=== PATIENT | female | born 1995 | race Hispanic/Latino ===

== ENCOUNTER 2018-08-16 17:39 | Emergency (ER) | payer SELFPAY ==
[2018-08-16] MEDS ORDERED: Ondansetron PF 4 MG/2 ML Vial ONE (18:04)
[2018-08-16] MEDS ORDERED: Famotidine/PF 20 mg/2ml Vial ONE (18:04)
[2018-08-16] MEDS ORDERED: Dicyclomine 20 MG TAB ONE (18:04)
[2018-08-16 18:28] LABS: BHCG - Serum Negative (NEGATIVE); Pregs Control Background? CLEAR/WHITE (CLR/WHITE); Pregs Control Bar Appear? YES (CONTROL BAR)
[2018-08-16 18:32] LABS: Band 4 % (5-11); Hemoglobin 13.7 g/dL (12.0-16.0); Lymphocytes 19 % (21-51); MDiff Complete? YES; Mean Corpuscular Hemoglobin 28.9 pg (27.0-31.0); Mean Corpuscular Volume 84.9 fL (78.0-98.0); Mean Platelet Volume 11.6 fL (7.4-10.4); Monocytes 5 % (0-10); Neutrophil 69 % (42-75); PLT Morphology Comment Appears Adequate; Platelet Count 185 thou/uL (130-400); RBC Distribution Width 10.9 % (11.5-14.5); Reactive Lymphocytes 3 % (0-10); Red Blood Cell (RBC) Count 4.75 mill/uL (4.20-5.40); White Blood Cell (WBC) Count 8.2 thou/uL (4.8-10.8)
[2018-08-16 18:37] LABS: ALT (SGPT) 25 U/L (8-55); AST (SGOT) 19 U/L (5-34); Albumin 4.6 g/dL (3.5-5.0); Alkaline Phosphatase 84 U/L (40-150); Anion Gap 14 mmol/L (10-20); BUN (Urea Nitrogen) 6 mg/dL (7.0-18.7); Bilirubin, Total 0.6 mg/dL (0.2-1.2); Calc. Creatinine Clearance 0 mL/min (70-130); Calcium 9.8 mg/dL (7.8-10.44); Carbon Dioxide 25 mmol/L (22-29); Chloride 106 mmol/L (98-107); Estimated GFR-MDRD Greater than 90; Globulin 3.2 g/dL (2.4-3.5); Glucose 97 mg/dL (70-105); Potassium 3.5 mmol/L (3.5-5.1); Protein, Total 7.8 g/dL (6.0-8.3); Sodium 141 mmol/L (136-145)
== END 2018-08-16 18:54 | disposition home or self-care (01) ==
LOC: SCSER 17:39
DX: R11.2 Nausea with vomiting, unspecified (principal); R19.7 Diarrhea, unspecified; F17.210 Nicotine dependence, cigarettes, uncomplicated
CPT/HCPCS: 80053; 84703; 85025; 96374; 96375; J2405; S0028

== ENCOUNTER 2019-01-09 21:26 | Emergency (ER) | payer SELFPAY ==
[2019-01-10] MEDS ORDERED: Lidocaine 1% w/Epinephrine 1:100K 20 ML VIAL ONE (00:18)
== END 2019-01-10 00:56 | disposition home or self-care (01) ==
LOC: ERS 21:26
DX: S71.112A Laceration without foreign body, left thigh, initial encounter (principal); W20.8XXA Other cause of strike by thrown, projected or falling object, initial encounter
CPT/HCPCS: 12032; J2001

== ENCOUNTER 2019-01-31 17:56 | Emergency (ER) | payer SELFPAY ==
[2019-01-31] MEDS ORDERED: Ondansetron PF 4 MG/2 ML Vial ONE (18:34)
[2019-01-31] MEDS ORDERED: Haloperidol Lactate 5 MG/ML VIAL ONE (18:34)
[2019-01-31] MEDS ORDERED: Lorazepam 2 MG/ML VIAL ONE (18:34)
[2019-01-31 18:43] LABS: #Lymphocytes 2.8 thou/uL (1.20-3.40); #Monocytes 0.8 thou/uL (0.11-0.59); %Basophils 0.2 % (0.0-1.0); %Eosinophils 0.2 % (0.0-10.0); %Lymphocytes 19.2 % (21.0-51.0); %Monocytes 5.1 % (0.0-10.0); %Neutrophils 75.3 % (42.0-75.0); Hemoglobin 16.1 g/dL (12.0-16.0); Mean Corpuscular HGB CONC 34.2 g/dL (32.0-36.0); Mean Corpuscular Hemoglobin 31.8 pg (27.0-31.0); Mean Platelet Volume 9.6 fL (7.4-10.4); Platelet Count 249 thou/uL (130-400); RBC Distribution Width 11.7 % (11.5-14.5); Red Blood Cell (RBC) Count 5.07 mill/uL (4.20-5.40); White Blood Cell (WBC) Count 14.7 thou/uL (4.8-10.8)
[2019-01-31 19:06] LABS: ALT (SGPT) 12 U/L (8-55); AST (SGOT) 16 U/L (5-34); Albumin 5.1 g/dL (3.5-5.0); Alkaline Phosphatase 97 U/L (40-150); Anion Gap 21 mmol/L (10-20); BUN (Urea Nitrogen) 4 mg/dL (7.0-18.7); Bilirubin, Total 0.7 mg/dL (0.2-1.2); Calc. Creatinine Clearance 0 mL/min (70-130); Calcium 10.8 mg/dL (7.8-10.44); Carbon Dioxide 15 mmol/L (22-29); Chloride 104 mmol/L (98-107); Estimated GFR-MDRD Greater than 90; Globulin 3.7 g/dL (2.4-3.5); Glucose 110 mg/dL (70-105); Lipase 7 U/L (8-78); Potassium 3.6 mmol/L (3.5-5.1); Protein, Total 8.8 g/dL (6.0-8.3); Sodium 136 mmol/L (136-145)
[2019-01-31 19:10] LABS: BHCG - Serum Negative (NEGATIVE); Pregs Control Background? CLEAR/WHITE (CLR/WHITE); Pregs Control Bar Appear? YES (CONTROL BAR)
== END 2019-01-31 20:21 | disposition home or self-care (01) ==
LOC: ERS 17:56
DX: E86.0 Dehydration (principal)
CPT/HCPCS: 80053; 82550; 83690; 84703; 85025; 93005; 96361; 96374; 96375; J1630; J2060; J2405

== ENCOUNTER 2019-02-02 11:24 | Emergency (ER) | payer SELFPAY ==
[~2019-02-02 11:24] MED LIST: Iopamidol 370 76% 100 ML VIAL ONE
[2019-02-02] MEDS ORDERED: Haloperidol Lactate 5 MG/ML VIAL ONE (12:09)
[2019-02-02] MEDS ORDERED: Ondansetron PF 4 MG/2 ML Vial ONE (12:10)
[2019-02-02] MEDS ORDERED: diphenhydrAMINE 50 MG/ML VIAL ONE (12:10)
[2019-02-02] MEDS ORDERED: Pantoprazole 40 MG VIAL ONE (12:10)
[2019-02-02 12:51] LABS: Band 3 % (5-11); Hemoglobin 16.4 g/dL (12.0-16.0); Lymphocytes 22 % (21-51); MDiff Complete? YES; Mean Corpuscular HGB CONC 34.3 g/dL (32.0-36.0); Mean Corpuscular Hemoglobin 30.9 pg (27.0-31.0); Mean Corpuscular Volume 90.1 fL (78.0-98.0); Mean Platelet Volume 9.4 fL (7.4-10.4); Monocytes 3 % (0-10); Neutrophil 71 % (42-75); Platelet Count 266 thou/uL (130-400); Platelet Morphology Comment Appears Adequate; RBC Distribution Width 11.6 % (11.5-14.5); Reactive Lymphocytes 1 % (0-10); Red Blood Cell (RBC) Count 5.32 mill/uL (4.20-5.40); Toxic Granulation SLIGHT; Vacuoles SLIGHT; White Blood Cell (WBC) Count 14.5 thou/uL (4.8-10.8)
[2019-02-02 12:53] LABS: Bilirubin Small (Negative); Blood, Urine Trace (Negative); Clarity Slightly Cloudy (Clear); Glucose, Urine (Dipstick) Negative (Negative); Leukocyte Negative (Negative); Nitrite Negative (Negative); Protein, Urine (Dipstick) 100 mg/dL (Neg-Trace); Specific Gravity, Urine 1.031 (1.002-1.036); Urobilinogen 0.2 mg/dL (0.2-1.0)
[2019-02-02 12:54] LABS: ALT (SGPT) 14 U/L (8-55); AST (SGOT) 12 U/L (5-34); Albumin 5.4 g/dL (3.5-5.0); Alkaline Phosphatase 95 U/L (40-150); Anion Gap 20 mmol/L (10-20); BUN (Urea Nitrogen) 6 mg/dL (7.0-18.7); Calc. Creatinine Clearance 0 mL/min (70-130); Calcium 10.9 mg/dL (7.8-10.44); Carbon Dioxide 17 mmol/L (22-29); Chloride 104 mmol/L (98-107); Estimated GFR-MDRD Greater than 90; Globulin 3.5 g/dL (2.4-3.5); Glucose 109 mg/dL (70-105); Lipase 4 U/L (8-78); Protein, Total 8.9 g/dL (6.0-8.3); Sodium 138 mmol/L (136-145)
[2019-02-02 12:55] LABS: Bacteria/HPF Rare-Few HPF (None Seen); RBC/HPF 0-3 HPF (0-3); WBC/HPF 0-3 HPF (0-3)
[2019-02-02 12:56] LABS: Hyaline Casts/LPF 0-3 HYALINE CAST LPF (0-3 Hyaline); Pregnancy Test - Urine (BHCG) Negative (Negative); Pregu Control Background? CLEAR/WHITE (CLR/WHITE); Pregu Control Bar Appear? YES (CONTROL BAR); Specific Gravity 1.031 (1.002-1.036)
--- NOTE | 2019-02-02 13:32 | CT ---
CT THORAX WITH CONTRAST CT ABDOMEN WITH CONTRAST CT PELVIS WITH CONTRAST: DATE: 02/02/2019 HISTORY: 23-year-old female with generalized abdominal pain TECHNIQUE: IV iodinated contrast media: Administered Oral contrast media: Not administered Single phase scans of thorax, abdomen, and pelvis. FINDINGS: At the posterior inferior aspect of the pelvic cavity, abutting the right anterior aspect of the rect um, and apparently distant from the right ovary, there is a 3 x 2 x 2.5 cm fluid collection with thin rim. It appears to be a cyst. No surrounding fat stranding. There is an enhancing 1.5 cm cyst in the left ovary. No signs of colonic diverticulitis. No signs of appendicitis. Kidneys, abdominal aorta, adrenals, olguin creas, liver, and spleen, are normal. No signs of acute cholecystitis. Lung bases are clear. No small bowel dilation. No ascites or pneumoperitoneum. IMPRESSION: 3 cm cyst in the far posterior inferior aspect of the pelvic cavity on the right, of uncertain origin . Otherwise negative.
== END 2019-02-02 15:07 | disposition home or self-care (01) ==
LOC: SCSER 11:24
DX: F12.10 Cannabis abuse, uncomplicated (principal); E87.6 Hypokalemia; R11.10 Vomiting, unspecified; R19.7 Diarrhea, unspecified; R10.813 Right lower quadrant abdominal tenderness
CPT/HCPCS: 74177; 80053; 81003; 81015; 81025; 83690; 85025; 96361; 96374; 96375; C9113; J1200; J1630; J2405; Q9967

== ENCOUNTER 2019-06-19 01:39 | Emergency (ER) | payer SELFPAY ==
[2019-06-19] MEDS ORDERED: Ketorolac Tromethamine 30 MG/ML VIAL ONE (02:52)
--- NOTE | 2019-06-19 07:52 | RAD ---
Sacrum/coccyx 2 views HISTORY: Tailbone pain. Injury. FINDINGS: Sacral alae are intact. Alignment within normal limits. No acute fracture or dislocation. IMPRESSION: No acute osseous abnormalities are demonstrated.
== END 2019-06-19 03:32 | disposition home or self-care (01) ==
LOC: ERS 01:39
DX: S32.2XXA Fracture of coccyx, initial encounter for closed fracture (principal); W18.30XA Fall on same level, unspecified, initial encounter
CPT/HCPCS: 72220; 96372; J1885

== ENCOUNTER 2020-11-08 18:06 | Emergency (ER) | payer BC, SELFPAY ==
--- NOTE | 2020-11-08 18:42 | RAD ---
RIGHT ANKLE 3 VIEWS: HISTORY: Injury, right ankle pain FINDINGS: The ankle mortise is maintained. No acute fracture or dislocation is identified.
== END 2020-11-08 19:06 | disposition home or self-care (01) ==
LOC: ERS 18:06
DX: S93.401A Sprain of unspecified ligament of right ankle, initial encounter (principal); X50.9XXA Other and unspecified overexertion or strenuous movements or postures, initial encounter